=== PATIENT | male | born 1950 | race Caucasian/White ===

== ENCOUNTER → 2024-07-19 12:34 | Outpatient (CLI) | payer MEDICARE, SELFPAY | PROVIDERS: Family Provider Internal Medicine; PCP Internal Medicine; Referring Provider Internal Medicine; Visit Provider Internal Medicine | DX: G56.02 Carpal tunnel syndrome, left upper limb (principal) | CPT/HCPCS: 95885; 95886; 95911 ==

== ENCOUNTER → 2024-09-18 12:34 | Outpatient (CLI) | payer MEDICARE, SELFPAY ==
--- NOTE | 2024-09-18 12:36 | DI.ECHO.S_ITS ---
[facility] +---------+ [facility] : : [address] : : [place] : : [id number] : : Phone: [phone] Echocardiogram Report + + :Name: MARIZOL RYAN Study Date: 09/18/2024 Height: 70 in : :Hospital ReadingLocation: Weight: 210 lb : : Gender: Male BSA: 2.1 m2 : :: 1950 Age: 73 yrs BP: 146/107 mmHg: :Reason For Study: ATRIAL FIBRILLATION : :Ordering Physician: DELILAH, : :CARLY Performed By: Marleny Harris : :Referring: CARLY MAZARIEGOS : + + Interpretation Summary 1. Borderline LV contractility with EF 50-55%. No WMA. No LVH. Unable to comment on diastolic function. 2. Normal RV contractility. 3. Normal chamber sizes. 4. Mild AI. 5. No obvious intracardiac shunts. 6. No obvious intracardiac masses/thrombi. 7. No hemodynamically significant pericardial effusion. 8. Low right sided filling pressures. 9. Borderline dilated aortic root without obvious dissection. Conclusion: Low normal LV systolic function with mild aortic insufficiency. Procedure: A two-dimensional transthoracic echocardiogram with color flow and Doppler was performed. The study quality was technically adequate. There is no prior echocardiogram noted for this patient. The patient was in atrial fibrillation with heart rates between 52-79 bpm during the exam. Left Ventricle: The left ventricle is normal in size. There is normal left ventricular wall thickness. The ejection fraction is estimated to be 50-55%. Diastolic function could not be accurately assessed due to atrial fibrillation. Right Ventricle: The right ventricle is normal in size and function. Atria: The left atrial size is normal. Right atrial size is normal. There is no Doppler evidence for an interatrial shunt. Mitral Valve: There is mild mitral annular calcification. The mitral valve leaflets appear mildly thickened, but open well. There is trace mitral regurgitation. Aortic Valve: The aortic valve is mildly calcified. There is minimally reduced leaflet mobility. There is no aortic valve stenosis. There is mild aortic regurgitation. Tricuspid Valve: The tricuspid valve leaflets are thin and pliable. There is trace tricuspid regurgitation. The right ventricular systolic pressure is estimated to be at least 16 mmHg based on an estimated right atrial pressure of 3 mm Hg. Pulmonic Valve: The pulmonic valve is not well seen, but is grossly normal. There is no pulmonic valvular regurgitation. Great Vessels: The aortic root is borderline dilated. The dimensions of the ascending aorta are normal. The IVC is of normal diameter and collapses greater than 50% with a sniff. This suggests a low right atrial pressure of 3 mm Hg. Pericardium/ Pleura There is no pericardial effusion. There is no pleural effusion. MMode/2D Measurements & Calculations LVIDd: 4.6 cm LVOT diam: 2.1 cm LVIDs: 3.4 cm Ao root diam: 4.0 cm FS: 26.4 % asc Aorta Diam: 3.8 cm EPSS: 1.1 cm Ao Arch Diam (Prox Trans): 2.8 cm IVSd: 0.99 cm LVPWd: 0.91 cm LV weeks. diameter/BSA (cm/m^2): 2.2 LV sys. diameter/BSA (cm/m^2): 1.6 LA A2 area: 22.3 cm2 RA long axis: 5.5 cm LA A4 area: 21.3 cm2 RA area: 18.2 cm2 LA length (vol): 6.0 cm RA vol: 51.1 ml LA vol: 67.0 ml RA : 24.0 ml/m2 LA vol index: 31.4 ml/m2 IVC diam: 1.7 cm RVD1 (basal): 2.6 cm RVD2 (mid): 2.1 cm TAPSE: 1.8 cm Doppler Measurements & Calculations Ao V2 max: 132.2 cm/sec LVOT Max Mookie: 66.6 cm/sec Ao V2 mean: 92.1 cm/sec LV V1 max P.8 mmHg Ao max P.4 mmHg LV V1 VTI: 14.2 cm Ao mean P.9 mmHg TRENA(I,D): 1.9 cm2 Ao V2 VTI: 27.0 cm TRENA(V,D): 1.8 cm2 sev ratio: 0.52 TRENA indexed to BSA (cm^2/m^2): 0.88 AI P1/2t: 869.2 msec AI dec slope: 113.2 cm/sec2 MV E max mookie: 99.1 cm/sec TR max mookie: 176.7 cm/sec MV A max mookie: 1.1 cm/sec TR max P.5 mmHg MV E/A: 88.7 PA V2 max: 70.9 cm/sec Med Peak E' Mookie: 10.0 cm/sec PA V2 mean: 55.3 cm/sec E/E' med: 9.9 PA mean P.3 mmHg Lat Peak E' Mookie: 12.9 cm/sec PA pr(Accel): 19.1 mmHg E/E' lat: 7.7 E/e' average: 8.8 MV dec time: 0.21 sec SV(LVOT): 50.7 ml Reading Physician:
== END ==
LOC: ECHO 12:35
PROVIDERS: Family Provider Internal Medicine; PCP Internal Medicine; Referring Provider Internal Medicine; Visit Provider Internal Medicine
DX: I34.81 Nonrheumatic mitral (valve) annulus calcification (principal); I35.1 Nonrheumatic aortic (valve) insufficiency; I48.91 Unspecified atrial fibrillation
CPT/HCPCS: 93306

== ENCOUNTER → 2024-10-15 10:07 | Outpatient (CLI) | payer MEDICARE, SELFPAY ==
--- NOTE | 2024-10-15 | DI.NM.S_ITS ---
PROCEDURE: NM NAYAN PERF SPECT R&S PHARM Rest and pharmacological stress myocardial perfusion SPECT with gated imaging and ejection fraction RADIOPHARMACEUTICAL: 12.5 mCi Tc-99m tetrafosmin IV at rest and 25.3 mCi Tc-99m tetrafosmin IV at peak effect of pharmacological stress. [id number] was performed. INDICATIONS: Chest pain, unspecified TECHNIQUE: Radiopharmaceutical was injected at peak stress test, and also at rest. SPECT images were obtained. SPECT myocardial perfusion images were displayed in short axis, horizontal long axis, and vertical long axis views. Gated images were reviewed using [employer]ek[employer] software. COMPARISON: None. CARDIAC STRESS: A pharmacologic stress test was performed under the supervision of an attending staff, using an infusion of lexiscan 0.4mg IV X1. Hemodynamic data: There is normal blood pressure and heart rate response to pharmacologic stress. Symptoms: The patient denied anginal chest pain. EKG: No diagnostic changes of ischemia; no ectopy. FINDINGS: Raw data: There is good myocardial uptake of radiotracer. No significant motion artifacts. [id number] ratio is 0.23 (normal is less than 0.38 for tetrafosmin tracer). Left ventricle function: Gated images demonstrate normal left ventricular wall thickening. No segmental wall motion abnormalities. No transient ischemic dilation; TID is 1.0 (normal less than 1.3). Left ventricle resting end diastolic volume is 97 mL. Left ventricle stress ejection fraction is 73%; normal range is above 45%. Myocardial perfusion: There is a mildly intense inferior wall defect at rest that improves with stress and resolves with prone imaging, suggesting diaphragmatic attenuation artifact. No ischemia and no infarction noted. IMPRESSION: Low risk, normal pharm nuclear stress test from inducible ischemia standpoint. 1) There is a mildly intense inferior wall defect at rest that improves with stress and resolves with prone imaging, suggesting diaphragmatic attenuation artifact. No ischemia and no infarction noted. 2) Normal left ventricular size, wall motion, and systolic function (EF post stress 73%). 3) No diagnostic ST changes with lexiscan 4) No angina during the study. 5) No prior nuclear stress test available for comparison. Dictated by: Veronica Adrian MD on 10/16/2024 at 16:48 Approved by: Veronica Adrian MD on 10/16/2024 at 16:51
== END ==
PROVIDERS: Family Provider Internal Medicine; PCP Internal Medicine; Referring Provider Internal Medicine; Visit Provider Internal Medicine
DX: R07.9 Chest pain, unspecified (principal)
CPT/HCPCS: 78452; 93017; A9502; J2785